=== PATIENT | female | born 1965 | race Caucasian/White ===

== ENCOUNTER 2016-08-27 05:13 | Emergency (ER) | payer OTHER ==
--- NOTE | 2016-08-27 06:07 | ED ---
Vimal Drew Erika, scribed for Rey Patel MD on 08/27/16 at 0600 . Palpitations / Dysrhythmia - HPI Summary HPI Summary: Patient is a 51-year-old female presenting to the ED with a CC of palpitations. Patient reports she felt well before she went to bed. Around 04:15, she woke up lightheaded and feeling like her heart was racing. Symptoms lasted about 1 hour , and then resolved. She denies similar symptoms in the past. Pt does note 6-7 weeks of right ear pain, not improved with Sudafed and antihistamines. Pt is followed by Dr. Goel. - History of Current Complaint Chief Complaint: EDDysrhythmPalp Time Seen by Provider: 08/27/16 05:50 Hx Obtained From: Patient Onset/Duration: Sudden Onset, Lasting Hours - 1 hour, Resolved Timing: Constant Severity Initially: Moderate Severity Currently: None Character: Fast Associated Signs & Symptoms: Lightheadedness - Allergy/Home Medications Allergies/Adverse Reactions: Allergies Allergy/AdvReac Type Severity Reaction Status Date / Time No Known Allergies Allergy Verified 12/26/13 06:38 PMH/Surg Hx/FS Hx/Imm Hx Endocrine/Hematology History: Denies: Hx Diabetes Cardiovascular History: Reports: Hx Hypertension Infectious Disease History: No Infectious Disease History: Denies: Traveled Outside the [place] in Last 30 Days - Family History Known Family History: Positive: Cardiac Disease, Hypertension, Diabetes - Social History Alcohol Use: Rare Hx Substance Use: No Substance Use Type: Reports: None Hx Tobacco Use: Yes Smoking Status (MU): Current Every Day Smoker Review of Systems Positive: Ear Ache - R Positive: Palpitations Neurological: Other - lightheadedness All Other Systems Reviewed And Are Negative: Yes Physical Exam Triage Information Reviewed: Yes Vital Signs On Initial Exam: Initial Vitals Temp Pulse Resp BP Pulse Ox 98.2 F 127 20 174/92 96 08/27/16 05:15 08/27/16 05:15 08/27/16 05:15 08/27/16 05:15 08/27/16 05:15 Vital Signs Reviewed: Yes Appearance: Positive: Well-Appearing, No Pain Distress Skin: Positive: Warm Head/Face: Positive: Normal Head/Face Inspection Eyes: Positive: KRISTAL ENT: Positive: Hearing grossly normal Neck: Positive: Supple Respiratory/Lung Sounds: Positive: Clear to Auscultation, Breath Sounds Present Cardiovascular: Positive: RRR Abdomen Description: Positive: Nontender, Soft Bowel Sounds: Positive: Present Musculoskeletal: Positive: Strength/ROM Intact Neurological: Positive: Alert, Oriented to Person Place, Time, Normal Gait Psychiatric: Positive: Affect/Mood Appropriate - [place] Coma Scale Coma Scale Total: 15 Diagnostics - Vital Signs Vital Signs Temp Pulse Resp BP Pulse Ox 08/27/16 05:30 93 18 150/85 96 08/27/16 05:29 96 16 96 08/27/16 05:25 96 20 152/81 95 08/27/16 05:15 98.2 F 127 20 174/92 96 - Laboratory Result Diagrams: 08/27/16 06:12 08/27/16 06:12 Lab Statement: Any lab studies that have been ordered have been reviewed, and results considered in the medical decision making process. - Radiology CXR Xray Interpretation: No Acute Changes Radiology Interpretation Completed By: ED Physician - EKG 05:30 Cardiac Rate: NL - at 86 bpm EKG Rhythm: Sinus Rhythm Course/Dx - Course Assessment/Plan: A 51 y/o F presents to the ED with a CC of palpitations and lightheadedness starting at 04:15 and lasting one hour. EKG shows NSR. CXR shows no acute changes. Blood work obtained - Diagnoses Provider Diagnoses: Palpitations Discharge - Discharge Plan Condition: Stable Disposition: HOME Patient Education Materials: Palpitations (ED) Referrals: Eric Jean MD [Primary Care Provider] - 2 Days Additional Instructions: Please follow up with your PCP. The documentation as recorded by the Vimal gerardo Erika accurately reflects the service I personally performed and the decisions made by me, Rey Patel MD.
[2016-08-27 06:40] LABS: Hematocrit 44 % (35-47); Hemoglobin 14.7 g/dl (12.0-16.0); Mean Corpuscular HGB Conc 34 g/dl (31-36); Mean Corpuscular Hemoglobin 29 pg (27-31); Mean Corpuscular Volume 87 fL (80-97); Mean Platelet Volume 9 um3 (7.4-10.4); Red Blood Count 5.04 10^6/ul (4.0-5.4); Red Cell Distribution Width 16 % (10.5-15); White Blood Count 10.5 10^3/ul (3.5-10.8)
[2016-08-27 07:04] LABS: Albumin 3.9 g/dL (3.2-5.2); BUN/Creatinine Ratio 11.4 (8-20); Calcium 9.3 mg/dL (8.6-10.3); EGFR African American 86.8 (>60); EGFR Non-African American 67.5 (>60); Globulin 3.1 g/dL (2-4); Magnesium 1.9 mg/dL (1.9-2.7); Potassium 3.4 mmol/L (3.5-5.0); Total Bilirubin 0.3 mg/dL (0.2-1.0)
[2016-08-27 07:06] LABS: Troponin I 0.02 ng/mL (<0.04)
[2016-08-27 07:13] LABS: TSH (Thyroid Stimulating Horm) 2.2 mcIU/mL (0.34-5.60)
[2016-08-27 07:34] VITALS: BP 117/71
--- NOTE | 2016-08-27 07:53 | RAD ---
INDICATION: Palpitations. COMPARISON: There are no prior studies available for comparison. TECHNIQUE: Dual-energy PA and lateral views of the chest were obtained. FINDINGS: The heart is within normal limits in size. Mediastinal and hilar contours appear within normal limits. There is a linear density present at the anterior lung base seen in the lateral view most consistent with subsegmental atelectasis. The lungs are hyperinflated and otherwise clear. No pleural effusion is seen. IMPRESSION: NO EVIDENCE FOR ACTIVE CARDIOPULMONARY DISEASE.
== END 2016-08-27 07:34 | disposition home or self-care (01) ==
LOC: ED 05:13
DX: R00.2 Palpitations (principal); R42 Dizziness and giddiness; H92.01 Otalgia, right ear; F17.210 Nicotine dependence, cigarettes, uncomplicated
CPT/HCPCS: 36415; 71020; 80053; 83605; 83735; 84443; 84484; 85025; 85379; 93005; 99283

== ENCOUNTER 2017-01-14 07:03 | Emergency (ER) | payer OTHER ==
[2017-01-14 07:10] VITALS: BP 156/88
--- NOTE | 2017-01-14 08:17 | UC ---
William Drew Angela, scribed for Hilda Echavarria MD on 01/14/17 at 0718 . Complaint Female HPI - HPI Summary HPI Summary: This pt is a 51 y/o female presenting to [facility] c/o pain with urination x1 week. Pt reports she bought Azo test strips and tested positive yesterday for UTI. She states she mainly feels pain at the end when she is finished urinating. Pt has a family history of diabetes. Pt is being followed up by her PCP ( nondiabetic as of now). NKDA. She is not taking any current medications. - History Of Current Complaint Chief Complaint: UCGU Stated Complaint: URINARY ISSUE Time Seen by Provider: 01/14/17 07:06 Hx Obtained From: Patient ?: No Onset/Duration: Lasting Days Timing: Lasting Days Pain Intensity: 7 Pain Scale Used: 0-10 Numeric Character: Burning Aggravating Factor(s): Urination Alleviating Factor(s): Nothing Associated Signs And Symptoms: Negative: Fever, Back Pain, Nausea, Vomiting(# Of Episodes =) - Allergies/Home Medications Allergies/Adverse Reactions: Allergies Allergy/AdvReac Type Severity Reaction Status Date / Time No Known Allergies Allergy Verified 12/26/13 06:38 Home Medications: Home Medications Aspirin [Aspirin 81 MG TAB] 81 mg PO 01/14/17 [History] Diltiazem HCl [Dilt-Xr] 240 mg PO 01/14/17 [History] Lisinopril [Lisinopril 40 MG-] 40 mg PO DAILY 01/14/17 [History Confirmed ] Triamterene/HCTZ 37.5-25 MG* [Dyazide CAP*] 1 cap PO DAILY 01/14/17 [History Confirmed 01/14/17] PMH/Surg Hx/FS Hx/Imm Hx Previously Healthy: Yes Other Endocrine History: DENIES: diabetes Cardiovascular History: Hypertension - Surgical History Surgical History: Yes Surgery Procedure, Year, and Place: tubal ligation - Family History Known Family History: Positive: Cardiac Disease, Hypertension, Diabetes - Social History Alcohol Use: None Substance Use Type: None Smoking Status (MU): Heavy Every Day Tobacco Smoker Type: Cigarettes Review of Systems Constitutional: Negative Skin: Negative Eyes: Negative ENT: Negative Respiratory: Negative Cardiovascular: Negative Gastrointestinal: Negative Genitourinary: Dysuria Motor: Negative Neurovascular: Negative Musculoskeletal: Negative Neurological: Negative Psychological: Negative All Other Systems Reviewed And Are Negative: Yes Physical Exam Triage Information Reviewed: Yes Appearance: Well-Nourished Vital Signs: Initial Vital Signs Temp 98.0 F 01/14/17 07:05 Pulse 103 01/14/17 07:05 Resp 18 01/14/17 07:05 BP 156/88 01/14/17 07:05 Pulse Ox 96 01/14/17 07:05 Vital Signs Reviewed: Yes Eye Exam: Normal ENT Exam: Normal Neck exam: Normal Respiratory Exam: Normal Respiratory: Positive: Chest non-tender, Lungs clear, Normal breath sounds, No respiratory distress, No accessory muscle use Cardiovascular Exam: Normal Cardiovascular: Positive: RRR, No Murmur, Pulses Normal, Brisk Capillary Refill , Other: - heart rate correlates with left radial pulse. Abdominal Exam: Normal Abdomen Description: Positive: Nontender, No Organomegaly, Soft. Negative: CVA Tenderness (R), CVA Tenderness (L) Bowel Sounds: Positive: Present Musculoskeletal Exam: Normal Musculoskeletal: Positive: Strength Intact Neurological Exam: Normal - nonfocal, grossly intact Psychological Exam: Normal - conversing easily and appropriately Skin Exam: Normal - no visible or reported rash Complaint Female Dx - Course Course Of Treatment: No new problems in the CCC. Reviewed results and coa with pt. Ms. Degroot was given the opportunity to ask several questions to which I answered to the best of my ability. - Differential Dx/Diagnosis Provider Diagnoses: Urinary tract infection. hematuria microscopic, likely uti related. Discharge - Discharge Plan Condition: Stable Disposition: HOME Prescriptions: Ciprofloxacin HCl [Cipro 500 MG TAB] 500 mg PO BID #14 tab Phenazopyridine 200 mg (NF) [Pyridium 200 MG tab *] 200 mg PO TID PRN #10 tab PRN Reason: Pain Patient Education Materials: Hematuria (ED), Urinary Tract Infection in Women ( ED) Referrals: Jhonathan Goel MD [Primary Care Provider] - Additional Instructions: Follow up with your primary care provider, Dr. Goel, within 1 month. Seek medical attention for worse or new problems in the meantime. The documentation as recorded by the William gerardo Angela accurately reflects the service I personally performed and the decisions made by me, Hilda Echavarria MD.
--- NOTE | 2017-01-15 18:20 | UC ---
Progress - Progress Note Progress Note: [facility]. IF WORSE WILL CALL IN KEFLEX 500 TID
== END 2017-01-14 07:35 | disposition home or self-care (01) ==
LOC: UCEAST 07:03
DX: N39.0 Urinary tract infection, site not specified (principal); I10 Essential (primary) hypertension; F17.210 Nicotine dependence, cigarettes, uncomplicated
CPT/HCPCS: 81003; 87077; 87086; 99212; G0463